=== PATIENT | female | born 1995 | race Native Hawaiian/Other Pacific Islander ===

== ENCOUNTER 2017-01-09 08:16 | Emergency (ER) | payer OTHER ==
[2017-01-09 08:52] VITALS: RESP 16; O2SAT 99
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
[2017-01-09 09:46] VITALS: BP 115/68; PULSE 90
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
== END 2017-01-09 09:47 | disposition home or self-care (01) ==
LOC: C.ER 08:16
DX: S70.01XA Contusion of right hip, initial encounter (principal); V09.29XA Pedestrian injured in traffic accident involving other motor vehicles, initial encounter; Y93.01 Activity, walking, marching and hiking; Y92.410 Unspecified street and highway as the place of occurrence of the external cause